=== PATIENT | male | born 1950 | race Caucasian/White ===

== ENCOUNTER 2022-01-22 03:52 | Emergency (ER) | payer SELFPAY ==
[2022-01-22 03:59] VITALS: BP 145/96; PULSE 100; RESP 20; TEMP 97.7
== END 2022-01-22 05:28 | disposition home or self-care (01) ==
LOC: EC 03:52
DX: Z20.822 Contact with and (suspected) exposure to COVID-19 (principal)
CPT/HCPCS: 87635; 99499